=== PATIENT | male | born 1965 | race Caucasian/White ===

== ENCOUNTER 2025-04-12 12:35 | Outpatient (CLI) | payer OTHER ==
[2025-04-12 14:34] LABS: #Basophils 0.03 10x3/uL (0.0-0.2); #Eosinophils 0.20 10x3/uL (0.0-0.7); #Monocytes 0.41 10x3/uL (0.11-0.59); #Neutrophils 3.83 10x3/uL (1.40-6.50); %Basophils 0.5 % (0.0-1.0); %Eosinophils 3.5 % (0.0-10.0); %Lymphocytes 20.7 % (21.0-51.0); %Monocytes 7.2 % (0.0-10.0); %Neutrophils 67.7 % (42.0-75.0); Hematocrit 31.8 % (42.0-52.0); Hemoglobin 9.9 g/dL (14.0-18.0); Mean Corpuscular Hemoglobin 31.1 pg (27.0-31.0); Mean Corpuscular Volume 100.0 fL (78.0-98.0); Platelet Count 182 10x3/uL (130-400); Red Blood Cell (RBC) Count 3.18 mill/uL (4.70-6.10); White Blood Cell (WBC) Count 5.66 10x3/uL (4.8-10.8)
[2025-04-12 14:42] LABS: INR-International Normal Ratio 1.1; PTT 29.3 sec (22.9-36.1); Prothrombin Time 14.3 sec (12.0-14.7)
[2025-04-12 14:43] LABS: Anion Gap 21 mmol/L (10-20); BUN (Urea Nitrogen) 60 mg/dL (8.4-25.7); Calc. Creatinine Clearance 0 mL/min (70-130); Calcium 8.8 mg/dL (7.8-10.44); Carbon Dioxide 23 mmol/L (22-29); Chloride 101 mmol/L (98-107); Glucose 201 mg/dL (70-105); Potassium 4.8 mmol/L (3.5-5.1); Sodium 140 mmol/L (136-145)
== END 2025-04-12 12:36 | disposition home or self-care (01) ==
LOC: LABBT 12:35
PROVIDERS: ATTEND Surgery
DX: Z01.818 Encounter for other preprocedural examination (principal); N18.6 End stage renal disease
CPT/HCPCS: 71046; 80048; 85025; 85610; 85730; 93005; 93010

== ENCOUNTER 2025-04-14 07:30 | Day surgery (SDC) | payer OTHER ==
[2025-04-12 13:05] VITALS: BMI 29.8
[2025-04-14 09:47] LABS: Potassium 4.7 mmol/L (3.5-5.1)
[2025-04-14] MEDS ORDERED: Ondansetron PF 4 MG/2 ML Vial ONE (10:33)
[2025-04-14] MEDS ORDERED: Lidocaine 1% PF 5 ML VIAL ONE (10:33)
[2025-04-14] MEDS ORDERED: Heparin 5,000 UNITS/ML VIAL ONE (11:08)
[2025-04-14] MEDS ORDERED: Lidocaine 1% (PF) 30 ML VIAL ONE (11:08)
[2025-04-14] MEDS ORDERED: CEFAZOLIN 2 GM VIAL ONE (11:27)
[2025-04-14] MEDS ORDERED: fentaNYL PF 100 MCG/2 ML SYRINGE ONE ×2 (11:47→11:59)
[2025-04-14] MEDS ORDERED: PHENYLEPHRINE-NS 100 MCG/ML 10 ML SYRINGE ONE (11:48)
[2025-04-14] MEDS ORDERED: PROPOFOL 200 MG/20 ML VIAL ONE (11:48)
[2025-04-14] MEDS ORDERED: Heparin 10,000 UNITS/ 10 ML VIAL ONE (12:12)
== END 2025-04-14 14:35 | disposition home or self-care (01) ==
LOC: SDC 07:30
PROVIDERS: ATTEND Surgery
PROC: 031 Upper Arteries, Bypass (ICD-10-PCS; principal; 2025-04-14)
DX: I12.0 Hypertensive chronic kidney disease with stage 5 chronic kidney disease or end stage renal disease (principal); N18.6 End stage renal disease; E11.22 Type 2 diabetes mellitus with diabetic chronic kidney disease; Z99.2 Dependence on renal dialysis; Z90.49 Acquired absence of other specified parts of digestive tract
CPT/HCPCS: 36416; 84132; A6258; C1713; J1100; J1644; J2003; J2405; J2704; J3373